=== PATIENT | female | born 1980 | race American Indian/Alaskan Native ===

== ENCOUNTER 2016-12-30 11:53 | Outpatient (CLI) | payer MEDICARE ==
--- NOTE | 2016-12-30 14:21 | XRay Report ---
ABDOMEN, 2 views: History: Abdominal pain. There is no evidence of free air beneath the diaphragms. The gas pattern within the abdomen is unremarkable. There is no evidence of bowel dilatation, significant air-fluid levels, or pathologic calcifications. Organ shadows are unremarkable. Cholecystectomy changes are noted. A peritoneal dialysis catheter terminates in the right side of the pelvis. IMPRESSION: Unremarkable abdomen.
== END 2016-12-30 11:54 | disposition home or self-care (01) ==
LOC: XRAY 11:53
PROVIDERS: ATTEND Internal Medicine Nephrology
DX: R10.9 Unspecified abdominal pain (principal); Z90.49 Acquired absence of other specified parts of digestive tract
CPT/HCPCS: 74020

== ENCOUNTER 2017-01-20 20:41 | Emergency (ER) | payer MEDICARE ==
[2017-01-21 00:20] LABS: INR 1.08 (0.87-1.13)
--- NOTE | 2017-01-21 07:01 | Emergency Department Report ---
ED General Adult HPI - General Chief complaint: Extremity Problem,Nontraumatic Stated complaint: POSS BLOOD CLOT R LEG Time Seen by Provider: 01/21/17 07:00 Source: patient Mode of arrival: Ambulatory Limitations: Physical Limitation - History of Present Illness Initial comments: Patient states she made a trip from [place] to [place] one week ago. She developed leg swelling and pain on Thursday. Has persisted. She stated she has no prior history of DVT. However, she did have a negative workup for DVT last year. She has a family history of DVT in her mother and grandmother. She is on peritoneal dialysis. Apparently she's had some intermittent leg swelling in the past. According to her records she was previously on Coumadin. I reviewed the recent hospital studies, there is a negative CT of the chest for pulmonary embolism and a negative Doppler within the year. During this problem the patient reports no shortness of breath, chest pain or hemoptysis or any unusual cough. -: Gradual, days(s) Location: right, lower extremity Radiation: non-radiation Quality: aching Consistency: intermittent Improves with: none Worsens with: none Associated Symptoms: denies other symptoms Treatments Prior to Arrival: none - Related Data Home Medications Medication Instructions Recorded Confirmed Last Taken Sevelamer Carbonate [Renvela] 2.4 gm PO TIDWM 04/28/14 08/09/15 08/08/15 Insulin Glargine [Lantus VIAL] 15 units SQ QHS 08/09/15 08/09/15 08/07/15 Insulin NPH/Regular [NovoLIN 70/30] 30 unit SQ TID 08/09/15 08/09/15 08/08/15 amLODIPine [Norvasc] 5 mg PO DAILY 08/09/15 08/09/15 08/08/15 Previous Rx's Medication Instructions Recorded Last Taken Type Warfarin [Coumadin] 5 mg PO DAILY #10 tablet 04/30/14 08/08/15 Rx traMADol [Ultram] 50 mg PO Q6HR PRN #10 tablet 09/05/15 Unknown Rx HYDROcodone/ACETAMINOPHEN [[place] 1 each PO Q6H #10 tablet 01/21/17 Unknown Rx 5-325 Tablet] Allergies Allergy/AdvReac Type Severity Reaction Status Date / Time shellfish derived Allergy Shortness Verified 09/07/14 07:17 of Breath sulfamethoxazole Allergy Shortness Verified 09/07/14 07:17 [From Bactrim] of Breath trimethoprim [From Bactrim] Allergy Shortness Verified 09/07/14 07:17 of Breath ED Review of Systems ROS: Stated complaint: POSS BLOOD CLOT R LEG Other details as noted in HPI Constitutional: denies: chills, fever Eyes: denies: eye pain, eye discharge, vision change ENT: denies: ear pain, throat pain Respiratory: denies: cough, shortness of breath, wheezing Cardiovascular: denies: chest pain, palpitations Endocrine: no symptoms reported Gastrointestinal: denies: abdominal pain, nausea, diarrhea Genitourinary: denies: urgency, dysuria, discharge Musculoskeletal: as per HPI, other (right calf pain and swelling). denies: back pain, joint swelling, arthralgia Skin: denies: rash, lesions Neurological: denies: headache, weakness, paresthesias Psychiatric: denies: anxiety, depression Hematological/Lymphatic: denies: easy bleeding, easy bruising ED Past Medical Hx - Past Medical History Hx Hypertension: Yes Hx Congestive Heart Failure: Yes Hx Diabetes: Yes (I) Hx Renal Disease: Yes (dialysis Everyday.) - Surgical History Hx Cholecystectomy: Yes Hx Appendectomy: Yes Additional Surgical History: graft right arm. right ovary removed - Social History Smoking Status: Unknown if ever smoked Substance Use Type: None - Medications Home Medications: Home Medications Medication Instructions Recorded Confirmed Last Taken Type Sevelamer Carbonate [Renvela] 2.4 gm PO TIDWM 04/28/14 08/09/15 08/08/15 History Warfarin [Coumadin] 5 mg PO DAILY #10 tablet 04/30/14 08/09/15 08/08/15 Rx Insulin Glargine [Lantus VIAL] 15 units SQ QHS 08/09/15 08/09/15 08/07/15 History Insulin NPH/Regular [NovoLIN 70/30] 30 unit SQ TID 08/09/15 08/09/15 08/08/15 History amLODIPine [Norvasc] 5 mg PO DAILY 08/09/15 08/09/15 08/08/15 History traMADol [Ultram] 50 mg PO Q6HR PRN #10 tablet 09/05/15 Unknown Rx HYDROcodone/ACETAMINOPHEN [[place] 1 each PO Q6H #10 tablet 01/21/17 Unknown Rx 5-325 Tablet] ED Physical Exam - General Limitations: Physical Limitation General appearance: alert, in no apparent distress - Head Head exam: Present: atraumatic, normocephalic - Eye Eye exam: Present: normal appearance, PERRL, EOMI. Absent: scleral icterus - ENT ENT exam: Present: mucous membranes moist - Neck Neck exam: Present: normal inspection - Respiratory Respiratory exam: Present: normal lung sounds bilaterally. Absent: respiratory distress - Cardiovascular Cardiovascular Exam: Present: regular rate, normal rhythm. Absent: systolic murmur, diastolic murmur, rubs, gallop - GI/Abdominal GI/Abdominal exam: Present: soft, normal bowel sounds. Absent: distended, tenderness, guarding, rebound - Extremities Exam Extremities exam: Present: full ROM, normal capillary refill, calf tenderness, other (there is some pretibial edema in the right lower extremity) - Back Exam Back exam: Present: normal inspection - Neurological Exam Neurological exam: Present: alert, oriented X3, CN II-XII intact. Absent: motor sensory deficit - Psychiatric Psychiatric exam: Present: normal affect, normal mood - Skin Skin exam: Present: warm, dry, intact, normal color. Absent: rash - Other Other exam information: Distal pulses DP and PT are symmetrical and 2+ bilaterally ED Course Vital Signs 01/20/17 01/21/17 01/21/17 22:45 04:20 05:15 Temperature 98.3 F Pulse Rate 96 H Respiratory 18 Rate Blood Pressure 179/84 178/85 Blood Pressure [Left] O2 Sat by Pulse 100 100 Oximetry 01/21/17 01/21/17 01/21/17 05:30 05:46 06:00 Temperature Pulse Rate Respiratory Rate Blood Pressure 178/85 178/85 180/90 Blood Pressure [Left] O2 Sat by Pulse 100 100 100 Oximetry 01/21/17 01/21/17 01/21/17 06:10 07:49 07:51 Temperature 98.5 F Pulse Rate 80 91 H Respiratory 18 18 Rate Blood Pressure Blood Pressure 165/73 [Left] O2 Sat by Pulse 100 100 100 Oximetry 01/21/17 08:39 Temperature 97.9 F Pulse Rate 93 H Respiratory 16 Rate Blood Pressure Blood Pressure 187/91 [Left] O2 Sat by Pulse 97 Oximetry ED Medical Decision Making - Lab Data Result diagrams: 01/21/17 07:37 01/21/17 07:37 Laboratory Results - last 24 hr 01/20/17 23:06 PT 14.6 INR 1.08 D-Dimer 306.18 H - Radiology Data Doppler is negative per vascular lab Critical care attestation.: If time is entered above; I have spent that time in minutes in the direct care of this critically ill patient, excluding procedure time. ED Disposition Clinical Impression: Pain of right calf, End stage renal disease Disposition: TO HOME OR SELFCARE Is pt being admited?: No Does the pt Need Aspirin: No Condition: Stable Instructions: Musculoskeletal Pain (ED) Additional Instructions: A Doppler exam is recommended within 1-2 weeks. This can be obtained as an outpatient. You may return here as well if you're unable. Elevate leg and follow up with her primary care physician. Return if any difficulty in breathing or worsening leg swelling or pain as needed as well. Prescriptions: HYDROcodone/ACETAMINOPHEN [[place] 5-325 Tablet] 1 each PO Q6H #10 tablet Referrals: PRIMARY CARE [Primary Care Provider] - 3-5 Days Time of Disposition: 09:13
[2017-01-21 07:51] LABS: Basophils % (Auto) 0.3 % (0.0-1.8); Eosinophils % (Auto) 0.7 % (0.0-4.3); Hematocrit 29.9 % (30.3-42.9); Hemoglobin 9.6 gm/dl (10.1-14.3); Mean Corpuscular HGB Conc 32 % (30-34); Mean Corpuscular Hemoglobin 27 pg (28-32); Mean Corpuscular Volume 83 fl (79-97); Platelet Count 254 K/mm3 (140-440); Red Blood Count 3.62 M/mm3 (3.65-5.03); Red Cell Distribution Width 16.5 % (13.2-15.2); White Blood Count 11.3 K/mm3 (4.5-11.0)
[2017-01-21] MEDS ORDERED: NORCO 5/325 PO ONE (08:00)
[2017-01-21 08:05] LABS: Calcium 8.7 mg/dL (8.4-10.2); Chloride 96.5 mmol/L (98-107)
[2017-01-21 08:41] VITALS: BP 187/91
== END 2017-01-21 09:22 | disposition home or self-care (01) ==
LOC: ED 20:41
DX: M79.661 Pain in right lower leg (principal); E11.22 Type 2 diabetes mellitus with diabetic chronic kidney disease; I12.0 Hypertensive chronic kidney disease with stage 5 chronic kidney disease or end stage renal disease; N18.6 End stage renal disease; Z79.01 Long term (current) use of anticoagulants; Z79.4 Long term (current) use of insulin; I50.9 Heart failure, unspecified; Z88.2 Allergy status to sulfonamides; Z91.013 Allergy to seafood; Z88.8 Allergy status to other drugs, medicaments and biological substances
CPT/HCPCS: 36415; 80048; 85025; 85379; 85610

== ENCOUNTER 2017-11-20 11:49 | Day surgery (SDC) | payer MEDICARE ==
[~2017-11-20 11:49] MED LIST: ANCEF/STERILE WATER 2 GM/20 ML 2 GM/20 ML SYRINGE IV NR; NACL 0.9% 1000 ML 1,000 ML IV SCH
[2017-11-20 12:57] LABS: INR 1.41 (0.87-1.13)
[2017-11-20 12:58] LABS: Partial Thromboplastin Time 29.2 Sec. (24.2-36.6)
[2017-11-20 13:00] LABS: Basophils # (Auto) 0.1 K/mm3 (0.0-0.1); Basophils % (Auto) 0.6 % (0.0-1.8); Eosinophils # (Auto) 0.1 K/mm3 (0.0-0.4); Eosinophils % (Auto) 1.2 % (0.0-4.3); Hematocrit 39.2 % (30.3-42.9); Hemoglobin 12.6 gm/dl (10.1-14.3); Lymphocytes % (Auto) 20.5 % (13.4-35.0); Mean Corpuscular HGB Conc 32 % (30-34); Mean Corpuscular Hemoglobin 28 pg (28-32); Mean Corpuscular Volume 87 fl (79-97); Monocytes # (Auto) 0.8 K/mm3 (0.0-0.8); Monocytes % (Auto) 7.7 % (0.0-7.3); Platelet Count 375 K/mm3 (140-440); Red Cell Distribution Width 15.5 % (13.2-15.2)
[2017-11-20 13:10] LABS: Calcium 9.5 mg/dL (8.4-10.2)
[2017-11-20] MEDS ORDERED: HEPARIN/NS 5000 UNIT/500ML(CATH LAB) 1,000 ML IR ONE (15:16)
[2017-11-20] MEDS ORDERED: HEPARIN 10,000 UNITS/10 ML ONE (15:16)
[2017-11-20] MEDS ORDERED: ANCEF/STERILE WATER 2 GM/20 ML 2 GM/20 ML SYRINGE IV ONE (15:16)
[2017-11-20] MEDS: XYLOCAINE 2% INFILTRATI ONE ×3 (15:57→16:11)
[2017-11-20] MEDS: SUBLIMAZE ONE ×3 (15:57→16:14)
[2017-11-20] MEDS: VERSED ONE ×3 (15:57→16:14)
[2017-11-20] MEDS ORDERED: VERSED ONE (16:12)
[2017-11-20] MEDS ORDERED: SUBLIMAZE ONE (16:13)
[2017-11-20] MEDS: DILAUDID ONE ×2 (16:56→17:13)
[2017-11-20] MEDS ORDERED: NORCO 5/325 ONE (17:51)
--- NOTE | 2017-11-20 18:12 | Short Stay Summary ---
Short Stay Documentation Date of service: 11/20/17 Narrative H&P: See H&P - History H&P: obtained from office - Allergies and Medications Current Medications: Allergies shellfish derived Allergy (Verified 09/07/14 07:17) Shortness of Breath sulfamethoxazole [From Bactrim] Allergy (Verified 09/07/14 07:17) Shortness of Breath trimethoprim [From Bactrim] Allergy (Verified 09/07/14 07:17) Shortness of Breath Home Medications Medication Instructions Recorded Confirmed Last Taken Type Sevelamer Carbonate [Renvela] 2.4 gm PO TIDWM 04/28/14 11/20/17 11/19/17 History 2.4GM Warfarin [Coumadin] 5 mg PO DAILY #10 tablet 04/30/14 11/20/17 11/19/17 Rx 5mg Insulin Glargine [Lantus VIAL] 15 units SQ QHS 08/09/15 11/20/17 11/19/17 History 15units Insulin NPH/Regular [NovoLIN 70/30] 30 unit SQ TID 08/09/15 11/20/17 11/19/17 History 30units amLODIPine [Norvasc] 5 mg PO DAILY 08/09/15 11/20/17 11/19/17 History 5mg Active Medications Acetaminophen/Hydrocodone Bitart ([place] 5/325) 1 each PO ONCE ONE Stop: 11/20/17 17:58 Cefazolin Sodium (Ancef/Sterile Water 2 Gm/20 Ml) 2 gm in 20 mls @ 80 mls/hr IV PREOP NR; Protocol Stop: 11/20/17 23:59 Last Admin: 11/20/17 16:06 Dose: 20 mls Sodium Chloride (Nacl 0.9% 1000 Ml) 1,000 mls @ 42 mls/hr IV DIRECT KISHA Last Admin: 11/20/17 16:05 Dose: 200 mls - Brief post op/procedure progress note Date of procedure: 11/20/17 Pre-op diagnosis: Bilateral Lower Extremity Venous Insufficiency Post-op diagnosis: same Procedure: 1. Ultrasound Guided Access Left Common Femoral Vein 2. Ultrasound Guided Access Right Common Femoral Vein 3. Bilateral Lower Extremity Venogram with Iliocaval Venogram 4. IVUS Left Common Iliac Vein and Left External Iliac Vein 5. IVUS Right Common Iliac Vein and Right External Iliac Vein 6. Angioplasy and Stent of Left Common Iliac Vein with 14 x 40 Balloon and 14 x 90 Wall Stent 7. Angioplasty and Stent of Left External Iliac Vein with 12 x 40 Balloon and 12 x 60 Protege Stent 8. Stent Right Common and External Iliac Veins with 14 x 90 Wall Stent 9. Radiologic Supervision with Interpretation Anesthesia: local, other (I.V. Sedation) Surgeon: LUCA CEBALLOS Estimated blood loss: minimal Pathology: none Condition: stable - Disposition Condition at discharge: Good Disposition: DC-01 TO HOME OR SELFCARE Short Stay Discharge Plan Activity: other (No strenuous activity for 24 hours) Diet: regular Wound: remove dressing (24 hours) Follow up with: LUCA CEBALLOS MD [Staff Physician] - 14 Days Prescriptions: HYDROcodone/APAP 7.5-325 [[place] 7.5/325] 1 each PO Q6HR PRN #40 tablet PRN Reason: Pain
[2017-11-20] MEDS ORDERED: NORCO 5/325 PO PRN (18:14)
--- NOTE | 2017-11-20 18:16 | Operative Report ---
Operative Report Operative Report: Date of Procedure: 11/20/2017 Pre-operative Diagnosis: Bilateral Lower Extremity Venous Insufficiency Post-operative Diagnosis: Same Procedure(s): 1. Ultrasound Guided Access Left Common Femoral Vein 2. Ultrasound Guided Access Right Common Femoral Vein 3. Bilateral Lower Extremity Venogram with Iliocaval Venogram (No Previous Films for Comparison) 4. IVUS Left Common Iliac Vein and Left External Iliac Vein 5. IVUS Right Common Iliac Vein and Right External Iliac Vein 6. Angioplasy and Stent of Left Common Iliac Vein with 14 x 40 Balloon and 14 x 90 Wall Stent 7. Angioplasty and Stent of Left External Iliac Vein with 12 x 40 Balloon and 12 x 60 Protege Stent 8. Stent Right Common and External Iliac Veins with 14 x 90 Wall Stent 9. Radiologic Supervision with Interpretation Surgeon: Gage Sanchez M.D. [place] Manager: None Anesthesia: Local and IV Sedation EBL: Minimal Counts: Correct Complications: None Condition: Stable Findings: Right lower extremity venogram and ultrasound findings demonstrated that the right common iliac and external iliac veins had minimal reflux and no significant stenosis was identified on the ultrasound. Venogram on the left lower extremity demonstrated significant reflux of contrast in the left common iliac into the hypogastric veins. The external iliac veins were significantly stenosed with possibly 70% stenosis. 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 After intervention there was no significant residual reflux on venogram with brisk flow of contrast through the left venous system into the inferior vena cava. Specimen: None Indication: The patient is a 37-year-old female who presented to the office with complaints of bilateral lower extremity claudication and varicosities on bilateral flanks and abdomen present for the past several months. She denies significant lower extremity edema however she states that she rarely leaves the house much and sits at home with her feet elevated secondary to the short distance claudication. She had a venous reflux study that demonstrated significant reflux in the superficial as well as the deep veins. Given these findings she was offered bilateral lower extremity venogram. She was given the risks, benefits, and alternative procedures and consented to the procedure. Description of Procedure: The patient was brought to the [facility] and laid in supine position. After she was adequately sedated bilateral groins were prepped and draped in normal sterile fashion. Several used to identify the left femoral vein and the skin and soft tissue was anesthetized with lidocaine. A small stab incision was created with an 11 blade and then micropuncture technique was used with ultrasound guidance to enter the vein. A 5 [place] sheath was then placed by Seldinger technique and a 0.035 Bentson wire was advanced into the superior vena cava under fluoroscopy. A venogram was then performed with the previously described findings. Ultrasound was used to identify the right femoral vein in the overlying skin and soft tissue was anesthetized with lidocaine. A small stab incision was created with an 11 blade and micropuncture technique was then used to into the vein under ultrasound guidance. A 5 [place] sheath was then placed by Seldinger technique. A venogram was then performed to produce a described findings. Each 5 [place] sheath was then replaced with a 10 [place] sheath by some technique. IVUS was performed on each side respectively by advancing the IVUS catheter into the inferior vena cava and pulling the catheter slowly back into the common femoral vein on each respective side. The findings are as previously described. After noting these findings I advanced a 14 x 40 balloon into the left common iliac vein and performed angioplasty of the vein was approximately 50% residual stenosis. I then performed angioplasty of the left external leg vein with a 12 x 40 balloon with approximately 60% residual stenosis. I placed a 12 x 60 Protege self-expanding stent in the left external iliac vein and postdilated this with a 12 x 40 balloon with the finding of less than 15% residual stenosis. I then advanced a 14 x 90 Wall Stent of both the right and left sides and were deployed simultaneously so that I would not chcf the Right common iliac vein. The right stent ended in the right external iliac vein and the left stent ended in the left extremity leg vein within the 12 mm previously deployed stent. The left common iliac stent was postdilated with a 14 mm balloon with less than 15% residual stenosis. At this point all balloons and wires were removed and the final venogram demonstrated brisk flow of contrast through both iliac veins and into the inferior vena cava without significant reflux. The patient tolerated the procedure well. All sponge, needle, and instrument counts were correct. The patient was taken to the recovery area in stable condition.
[2017-11-20 18:37] VITALS: BP 138/70
[2017-11-20] MEDS ORDERED: NORCO 5/325 PO ONE (18:57)
== END 2017-11-20 19:00 | disposition home or self-care (01) ==
LOC: CATHLABREC 11:49
PROVIDERS: ATTEND Surgery Vascular Surgery
DX: I87.2 Venous insufficiency (chronic) (peripheral) (principal); I87.1 Compression of vein; E11.22 Type 2 diabetes mellitus with diabetic chronic kidney disease; I13.2 Hypertensive heart and chronic kidney disease with heart failure and with stage 5 chronic kidney disease, or end stage renal disease; N18.6 End stage renal disease; I50.9 Heart failure, unspecified; M19.90 Unspecified osteoarthritis, unspecified site; Z79.4 Long term (current) use of insulin; Z79.01 Long term (current) use of anticoagulants; Z88.2 Allergy status to sulfonamides; Z88.1 Allergy status to other antibiotic agents; Z91.013 Allergy to seafood; Z99.2 Dependence on renal dialysis; Z90.49 Acquired absence of other specified parts of digestive tract; Z98.890 Other specified postprocedural states
CPT/HCPCS: 36415; 37238; 37239; 37252; 37253; 75822; 76937; 80048; 85025; 85610; 85730; 99156; 99157; C1725; C1753; C1876; C1894; J0690; J1170; J1644; J2250; J3010; J7030; Q9967